=== PATIENT | female | born 1960 | race Two or more races ===

== ENCOUNTER 2025-08-18 18:11 | Emergency (ER) | payer MEDICARE, OTHER ==
[~2025-08-18] VITALS: Ht 157.5 cm; Wt 77.1 kg
[2025-08-18 18:22] VITALS: BP 138/76
[2025-08-18 19:05] LABS: PLATELET COUNT (AUTO) 192 K/uL (179-408); RED BLOOD CELL COUNT(AUTO) 3.77 MIL/uL (3.63-4.92); RED CELL DISTRIBUTION WIDTH 13.7 % (12.3-17.7); WHITE BLOOD COUNT (AUTO) 4.3 K/uL (3.8-11.8)
[2025-08-18 19:11] LABS: CREATININE 0.8 mg/dL (0.6-1.3); SODIUM SERUM 135.0 mmol/L (136-145); UREA NITROGEN, BLOOD 25.0 mg/dL (7-18)
[2025-08-18 19:17] LABS: ASPARTATE AMINOTRANSFERASE 18.0 U/L (15-37); TOTAL PROTEIN, SERUM 8.7 g/dL (6.4-8.2)
[2025-08-18 20:25] VITALS: BP 128/73; TEMP 97.9; O2SAT 97
== END 2025-08-18 20:25 | disposition home or self-care (01) ==
LOC: ER 18:27
DX: R07.9 Chest pain, unspecified (principal); E78.00 Pure hypercholesterolemia, unspecified; I49.8 Other specified cardiac arrhythmias; R06.2 Wheezing
CPT/HCPCS: 36415; 71045; 83735; 84484; 85025; A4606; A4663